=== PATIENT | male | born 1940 | race Caucasian/White ===

== ENCOUNTER → 2019-03-05 | Day surgery (SDC) | payer MEDICARE, OTHER ==
[2019-03-02 15:45] LABS: BASOPHILS % 0.3 % (0.0-1.0); EOSINOPHILS # (AUTO) 0.1 (0.0-0.4); EOSINOPHILS % 1.7 % (0.0-6.0); HEMATOCRIT 42.8 % (38.2-49.6); HEMOGLOBIN 14.1 g/dL (14.0-18.0); LYMPHOCYTES # (AUTO) 1.9 (1.0-3.2); LYMPHOCYTES % 26.4 % (18.0-39.1); MEAN CORPUSCULAR HEMOGLOBIN 29.5 pg (28-32); MEAN CORPUSCULAR HGB CONC 32.9 g/dL (31-35); MEAN CORPUSCULAR VOLUME 89.5 fL (81-99); MONOCYTES # (AUTO) 0.6 (0.2-0.8); NEUTROPHILS # (AUTO) 4.4 (2.1-6.9); NEUTROPHILS % 62.2 % (38.7-80.0); PLATELET COUNT 146 x10e3/uL (140-360); RED BLOOD COUNT 4.78 x10e6/uL (4.3-5.7); RED CELL DISTRIBUTION WIDTH 13.4 % (11.7-14.4)
[2019-03-02 15:59] LABS: ANION GAP 11.5 mmol/L (8-16); BLOOD UREA NITROGEN 12 mg/dL (7-26); BUN/CREATININE RATIO 13 (6-25); CALCIUM 9.9 mg/dL (8.4-10.2); CARBON DIOXIDE 30 mmol/L (22-29); CHLORIDE 96 mmol/L (98-107); CREATININE, SERUM 0.89 mg/dL (0.72-1.25); EST GLOMERULAR FILTRATION RATE > 60 ML/MIN (60-); GLUCOSE 154 mg/dL (74-118); POTASSIUM 3.5 mmol/L (3.5-5.1); SODIUM 134 mmol/L (136-145)
--- NOTE | 2019-03-02 16:00 | Diagnostic Imaging Report ---
EXAMINATION: PA and lateral views of the chest. COMPARISON: None CLINICAL HISTORY: Preoperative evaluation, foot surgery DISCUSSION: Lines/tubes: None. Lungs: The lungs are well inflated and clear. No pneumonia or pulmonary edema. Pleura: No pleural effusion or pneumothorax. Heart and mediastinum: The cardiomediastinal silhouette is normal. Bones and soft tissues: No acute bony abnormalities. Skeletal hyperostosis. IMPRESSION: No acute cardiopulmonary abnormalities. Signed by: Dr. Portillo Overton M.D. on 03/02/2019 3:56 PM
[~2019-03-05] MED LIST: ALLOPURINOL100 MG PO; ASPIR 8181 MG PO; ATENOLOL-CHLOR1 EAC1 PO; ATORVASTATIN CA20 MG PO; BUPIVACAINE HCL 0.5% INJ 30 ML VIAL INJ ONE; CEFAZOLIN SOD 2 GM/D5W 50ML 50 ML IV ONE; DEXAMETHASONE SOD PHOS INJ 4 MG/ML VIAL ONE; EPHEDRINE SULFATE INJ 50 MG/10 ML SYR ONE; FENTANYL CITRATE/PF 100MCG/2 ML INJ ONE; KETOROLAC TROMETHAMINE 30 MG/ML VIAL ONE; LIDOCAINE HCL 2% LOCAL INJ 5 ML SDV VIAL INJ ONE; LISINOPRIL10 MG PO; METFORMIN HCL500 MG PO; MUPIROCIN 2% OINT 22 GM TUBE ONE; ONDANSETRON HCL INJ 2MG/ML 2ML 2 MG/ML VIAL ONE; PROPOFOL IV EMULSION 10 MG/ML 20 ML VIAL ONE; SEVOFLURANE INHAL SOLN 250 ML PEN BTL ONE
--- OUTSIDE RECORDS SUMMARY | 2019-03-05 07:36 | XMS REPORT ---
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 Allergies, Adverse Reactions, Alerts This patient has no known allergies or adverse reactions. Medications This patient has no known medications. Results Test Description Test Time Test Comments Text Results Atomic Results Result Comments CHEST 2 VIEWS 2019-03-02 15:56:00 [place] [address] Patient Name: GERALDINE ARCHIBALD MR #: [id number] : 1940 Age/Sex: 78/M Req #: [id number] Adm Physician: Ordered by: PORFIRIO PEREZ DPM Report #: [id number] Location: OR Room/Bed: Procedure: [id number] DX/CHEST 2 VIEWS Exam Date: 03/02/19 Exam Time: 1530 REPORT STATUS: Signed EXAMINATION: PA and lateral views of the chest. C OMPARISON: None CLINICAL HISTORY: Preoperative evaluation, foot surgery DISCUSSION: Lines/tubes: None. Lungs: The lungs are well inflated and clear. No pneumonia or pulmonary edema. Pleura: No pleural effusion or pneumothorax. Heart and mediastinum: The cardiomediastinal silhouette is normal. Bones and soft tissues: No acute bony abnormalities. Skeletal hyperostosis. IMPRESSION: No acute cardiopulmonary abnormalities. Signed by: Dr. Abraham Smith M.D. on 03/02/2019 3:56 PM Dictated By: ARBAHAM SMITH MD [id number] Transcribed By: ARUNA on 03/02/19 8519 COPY TO: PORFIRIO PEREZ DPM
--- OUTSIDE RECORDS SUMMARY | 2019-03-05 07:36 | XMS REPORT | Encounter Summary ---
Author Organization Unknown Address [address] [place] [id number] Phone [phone] Care Team Providers Care Lease Out Man Name Role Phone Dr. Landon Burgos 3 [phone] Jil Lundberg (Spouse) 62 [phone] Andrei Noel MD 104 [phone] Cleve Schwartz MD 107 [phone] Alessandro Luna MD 111 [phone] Hernandez Montilla 118 [phone] Reason for Visit Benign essential hypertension; Type II diabetes mellitus uncontrolled Instructions 1. Benign essential hypertension atenolol 50 mg-chlorthalidone 25 mg tablet lisinopril 20 mg tablet 2. Type II diabetes mellitus uncontrolled metformin 1,000 mg tablet HbA1c (hemoglobin A1c), blood diabetic ophthalmology referral 3. Hyperlipidemia atorvastatin 40 mg tablet CMP, serum or plasma lipid panel, serum 4. Gout allopurinol 100 mg tablet uric acid, serum or plasma 5. Depression screening learning about depression 6. Body mass index 25-29 - overweight learning about healthy weight 7. Malignant tumor of pharynx 8. Senile purpura 9. Peripheral vascular disease Discussion Note: None recorded. Plan of Care Reminders Provider Appointments Est Patient 05/03/2019 8:45AM Aster Becerra MD Lab Uric Acid, Serum or Plasma 01/29/2019 [facility] CMP, Serum or Plasma 01/29/2019 [facility] Lipid Panel, Serum 01/29/2019 [facility] HbA1C (Hemoglobin a1C), Blood 01/29/2019 [facility] Referral Diabetic Ophthalmology Referral 01/29/2019 Alessandro Luna MD Procedures None recorded. Surgeries None recorded. Imaging None recorded. Medications Name Start Date allopurinol 100 mg tablet TAKE 1 TABLET BY MOUTH EVERY DAY aspirin 81 mg tablet,delayed release Take 1 tablet every day by oral route as directed for 90 days. atenolol 50 mg-chlorthalidone 25 mg tablet TAKE 1 TABLET BY MOUTH EVERY DAY atorvastatin 40 mg tablet TAKE 1 TABLET BY MOUTH EVERY DAY DIRECTED Contour Test Strips use 3 times a week lisinopril 20 mg tablet TAKE 1 TABLET BY MOUTH EVERY DAY metformin 1,000 mg tablet TAKE 1 TABLET BY MOUTH TWICE DAILY DIRECTED Medications Administered None recorded. Vitals Height Weight BMI Blood Pressure 6 ft 211 lbs 28.6 kg/m2 120/65 mm[Hg] Lab Results None recorded. Allergies Code Code System Name Reaction Severity Status Onset NKDA Problems Name Status Onset Date Source Type II Diabetes Mellitus Uncontrolled Active 07/22/2016 Mixed Hyperlipidemia Active 07/22/2016 Gout Active 07/22/2016 Benign Essential Hypertension Active 07/22/2016 Body Mass Index 25-29 - Overweight Active 09/04/2016 Osteoarthritis Active 09/04/2016 Heart Murmur Active 09/04/2016 Chronic Hoarseness Active 06/24/2017 History of Malignant Neoplasm of Pharynx Active 06/16/2018 Procedures Date Name Performed by 01/08/2018 Colonoscopy Information not available 03/06/2011 Colonoscopy Information not available Back Surgery Information not available Vaccine List Vaccine Type influenza, unspecified formulation 11/10/2014 08/10/2016 08/10/2017 pneumococcal conjugate PCV 13 09/04/20160.5 mL pneumococcal polysaccharide PPV23 08/14/2018 pneumococcal, unspecified formulation 08/10/2017 Tdap 07/16/2013 zoster 10/25/2014 08/10/2016 Social History Smoking Status Former Smoker Past Encounters 01/29/2019 Benign Essential Hypertension; Type II Diabetes Mellitus Uncontrolled; Hyperlipidemia; Gout; Depression Screening; Body Mass Index 25-29 - Overweight; Malignant Tumor of Pharynx; Senile Purpura; Peripheral Vascular Disease Landon Wilkes MD: [address] [place] [address], Ph. History of Present Illness Note:F/u on chronic conditions. Needs refill in meds. Compliant with meds. Non compliant with diet or exercise. Glucose readings at home 118s-150s fasting. BPs at home 130s/70s. No side effects with meds. No new symptoms Review of Systems Comprehensive General Adult ROS Reported By: Patient Constitutional: Constitutional: no fever Eyes: Eyes: no vision change Cardiovascular: Cardiovascular: no chest pain, no palpitations, no lightheadedness Respiratory: Respiratory: no cough, no wheezing, no shortness of breath Gastrointestinal: Gastrointestinal: no abdominal pain, no nausea, no vomiting, no constipation, no diarrhea Musculoskeletal: Musculoskeletal: no muscle aches, no swelling in the extremities Integumentary: Skin: no rashes Neurologic: Neurologic: no loss of consciousness, no headaches Psychiatric: Psych: no depression, no alcohol abuse, no anxiety, no suicidal thoughts Endocrine: Endocrine: no fatigue Physical Exam General Adult Exam (male) Reported By: Patient Constitutional: General Appearance: healthy-appearing. Level of Distress: NAD Eyes: Lids and Conjunctivae: non-injected, no discharge. EOM: EOMI ENMT: Ears: TMs clear. Nose: no sinus tenderness. Lips, Teeth, and Gums: no mouth or lip ulcers. Oropharynx: moist mucous membranes Neck: Neck: supple, trachea midline. Thyroid: no enlargement, non-tender Lungs: Auscultation: breath sounds normal Cardiovascular: Heart Auscultation: RRR, normal S1, normal S2, no murmurs. Neck vessels: no carotid bruits. Pulses including femoral / pedal: normal throughout Abdomen: Inspection and Palpation: soft, non-distended, no tenderness, no guarding Musculoskeletal:: Motor Strength and Tone: normal, normal tone. Extremities: no edema Neurologic: Gait and Station: normal gait Skin: Inspection and palpation: no rash, no lesions
[2019-03-05 12:45] VITALS: BP 129/80
--- NOTE | 2019-03-05 17:50 | Operative Report ---
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 ANESTHESIA: General endotracheal. HEMOSTASIS: Right thigh tourniquet to 350 mmHg. PROCEDURE LIST: 1. Modified Lozoya bunionectomy of the right foot. 2. Tailor's bunionectomy of the right foot. 3. Arthrodesis of digits 2, 3, 4, and 5 of right foot with implantable two-step hammertoe devices as well as 0.045 K-wires. PROCEDURE IN DETAIL: The patient was taken to the operating room in a mildly sedated state and placed on the operating table in supine position. Following induction of general anesthetic, the right lower extremity was elevated to 60 degrees to exsanguinate before inflating the pneumatic thigh tourniquet to 350 mmHg to create hemostasis. Right lower extremity was placed upon the operating table prior to performing following procedure. Procedure #1 is modified Lozoya bunionectomy of the right foot. An approximate 6 cm dorsal linear incision was made across the dorsal medial aspect of 1st metatarsophalangeal joint of the right foot. The incision was deepened via sharp and blunt dissection down to the level of dorsal capsular structure. Care was taken to identify and retract all vital structures encountered. The head of the 1st metatarsal bone at surgical site noted to have a significant amount of gouty dystrophy with tophi present as well as mild degenerative joint disease. All bony prominences were remodeled utilizing oscillating saw and rotary bur. Dorsal aspect was further remodeled as well as the conjoined tendon, the adductor hallucis muscle was identified and tenotomized and a McGlamry elevator was used to further release the contracture surrounding the joint. The area was irrigated copious amounts of sterile saline solution. Deep closure was with 3-0 Vicryl, subcutaneous closure with 4-0 Vicryl and skin closure with 4-0 nylon. The areas of surgery were then noted to be in excellent alignment with no crepitus to joint range of motion and no bony exostosis. The attention was then directed to the digits 2, 3, 4, and 5 of the right foot for extensor tenotomy and capsulotomy at the metatarsophalangeal joint level. Due to the severity in the rigid contracture of the digits, extensor tenotomy and capsulotomy was performed on digits 2, 3, 4, and 5 across the joint utilizing a Z-plasty type tendon lengthening and sacrificing the brevis tendon on all digits. The areas were irrigated. Attention was then directed to the tailor's bunion deformity at 5th metatarsal area on the right foot. A linear longitudinal incision was made overlying the tailor's bunion site. The head of the 5th metatarsal delivered in surgical site remodeled both dorsally and laterally with oscillating saw and rotary bur. The area was irrigated copious amounts of sterile saline solution. At this point, with the digit still malaligned, there was still a bony prominence, but this was further reduced later at the time that the digit was realigned. At this point, attention was directed to the digits 2, 3, 4,and 5. Linear longitudinal incisions were made overlying the proximal interphalangeal joint levels of all of these bones. The transverse tenotomy was performed at the joint level and the head of the proximal phalanx was delivered in the surgical site 2, 3, 4, and 5. The cup and cone reamers were used to remove the head of the proximal phalanx and shorten the digits slightly on digits 2, 3, 4, and 5. The cone portion was then used distally to remodel the base of the intermediate phalanx for further stability. The areas were all irrigated with copious amounts of sterile saline solution. Drill was used to fashion a canal for the hammertoe implant, Trilliant two-step implant to be fitted distally on digits 2, 3, and 4. The 5th digit had a K-wire installed rather than the implantable device. After irrigation, the appropriate manipulation of distraction and insertion proximally was performed. This allowed for tamping down of the digit from distal to proximal, which seated the digit well. All areas were irrigated with copious amounts of sterile saline solution. Deep closure was with 3-0 Vicryl, tendon repair 3-0 Vicryl, and skin closure 4-0 nylon. K-wires were then advanced under fluoroscopy not only through the digital joint but also into the metatarsophalangeal joints holding them on the same level as the 5th digit with metatarsophalangeal joint pinning, which now held that 5th digit in rectus position. All areas were irrigated and deep closure was 3-0 Vicryl and 4-0 nylon. 0.5% Marcaine and Decadron LA were used to block the foot. The release of the pneumatic thigh tourniquet showed a normal hyperemic flush to all digits of the right foot and pins were cut and bent to the appropriate length. A posterior splint was applied. The patient left the operating room with vital signs stable in apparent satisfactory condition having tolerated both anesthetic and procedure very well. SHANT Cruz/DELFINA /[id number]
== END | disposition home or self-care (01) ==
LOC: OR 07:25
PROVIDERS: ATTEND Podiatrist Foot Surgery
DX: M20.11 Hallux valgus (acquired), right foot (principal); M21.621 Bunionette of right foot; M20.41 Other hammer toe(s) (acquired), right foot; M1A.9XX1 Chronic gout, unspecified, with tophus (tophi); R49.0 Dysphonia; I10 Essential (primary) hypertension; E11.9 Type 2 diabetes mellitus without complications; Z01.810 Encounter for preprocedural cardiovascular examination; Z01.812 Encounter for preprocedural laboratory examination; Z01.818 Encounter for other preprocedural examination; Z79.82 Long term (current) use of aspirin; Z87.891 Personal history of nicotine dependence
CPT/HCPCS: 28110; 28285 ×4; 28292; 36415 ×2; 71046; 80048; 82948; 85025; 93005; C1713 ×3; J0690; J1100; J1885; J2001; J2405; J2704

== ENCOUNTER → 2021-06-26 | Day surgery (SDC) | payer MEDICARE, OTHER ==
[~2021-06-26] MED LIST changes: -BUPIVACAINE HCL 0.5% INJ 30 ML VIAL INJ ONE; -CEFAZOLIN SOD 2 GM/D5W 50ML 50 ML IV ONE; -DEXAMETHASONE SOD PHOS INJ 4 MG/ML VIAL ONE; -EPHEDRINE SULFATE INJ 50 MG/10 ML SYR ONE; -FENTANYL CITRATE/PF 100MCG/2 ML INJ ONE; +JANUVIA25 MG PO; -KETOROLAC TROMETHAMINE 30 MG/ML VIAL ONE; -LIDOCAINE HCL 2% LOCAL INJ 5 ML SDV VIAL INJ ONE; -MUPIROCIN 2% OINT 22 GM TUBE ONE; -ONDANSETRON HCL INJ 2MG/ML 2ML 2 MG/ML VIAL ONE; +OR PHACO EYE KIT ONE; +PREOP PHACO EYE KIT ONE; -PROPOFOL IV EMULSION 10 MG/ML 20 ML VIAL ONE; -SEVOFLURANE INHAL SOLN 250 ML PEN BTL ONE
[2021-06-26 15:30] VITALS: BP 146/92
== END | disposition home or self-care (01) ==
LOC: OR 12:46
PROVIDERS: ATTEND Ophthalmology
DX: H25.11 Age-related nuclear cataract, right eye (principal); I10 Essential (primary) hypertension; E11.9 Type 2 diabetes mellitus without complications; E78.5 Hyperlipidemia, unspecified; Z85.819 Personal history of malignant neoplasm of unspecified site of lip, oral cavity, and pharynx; Z01.812 Encounter for preprocedural laboratory examination; Z20.822 Contact with and (suspected) exposure to COVID-19
CPT/HCPCS: 36415; 66984; 82948; U0002; V2632

== ENCOUNTER → 2021-07-10 | Day surgery (SDC) | payer MEDICARE, OTHER ==
[2021-07-10 13:15] VITALS: BP 147/82
== END | disposition home or self-care (01) ==
LOC: OR 10:59
PROVIDERS: ATTEND Ophthalmology
DX: H25.12 Age-related nuclear cataract, left eye (principal); H57.09 Other anomalies of pupillary function; E11.9 Type 2 diabetes mellitus without complications; I10 Essential (primary) hypertension; E78.5 Hyperlipidemia, unspecified; R49.0 Dysphonia; Z01.812 Encounter for preprocedural laboratory examination; Z20.822 Contact with and (suspected) exposure to COVID-19; Z79.84 Long term (current) use of oral hypoglycemic drugs; Z79.82 Long term (current) use of aspirin; Z85.819 Personal history of malignant neoplasm of unspecified site of lip, oral cavity, and pharynx; Z92.3 Personal history of irradiation; Z87.891 Personal history of nicotine dependence
CPT/HCPCS: 66982; U0002; V2632